=== PATIENT | female | born 1985 | race Caucasian/White ===

== ENCOUNTER 2016-11-12 19:47 | Emergency (ER) | payer SELFPAY ==
[~2016-11-12] VITALS: Ht 165.1 cm; Wt 58.5 kg
[~2016-11-12 19:47] MED LIST: CARB200T PO; PRED10TA14 PO
[2016-11-12] MEDS ORDERED: MORPHINE SULFATE 4 MG/ML, 1ML IVPush PRN (21:30)
[2016-11-12] MEDS ORDERED: SODIUM CHLORIDE FLUSH 10ML SYR IVF ONE (21:30)
[2016-11-12] MEDS ORDERED: ONDANSETRON 2MG/ML, 2ML IVPush ONE (21:30)
[2016-11-12 21:41] LABS: HEMOGLOBIN 14.8 g/dL (11.7-16.4)
[2016-11-12 21:44] LABS: ASPARTATE AMINO TRANSFERASE 13 U/L (15-37); BLOOD UREA NITROGEN 9 mg/dL (7-18)
[2016-11-12] MEDS ORDERED: MORPHINE SULFATE 4 MG/ML, 1ML ONE (21:58)
[2016-11-12] MEDS ORDERED: ONDANSETRON 2MG/ML, 2ML ONE (21:58)
[2016-11-12 23:29] VITALS: BP 93/75
== END 2016-11-12 23:35 | disposition home or self-care (01) ==
LOC: ED 22:29
DX: K29.00 Acute gastritis without bleeding (principal); K80.20 Calculus of gallbladder without cholecystitis without obstruction
CPT/HCPCS: 36415; 76700; 80053; 81003; 83690; 84703; 85025; 96374; 96375; 99285; J2405

== ENCOUNTER 2017-12-14 19:15 | Emergency (ER) | payer MEDICAID ==
[~2017-12-14] VITALS: Ht 165.1 cm; Wt 66.6 kg
[2017-12-14 19:36] VITALS: BP 123/81
== END 2017-12-14 21:18 | disposition home or self-care (01) ==
LOC: ED 21:12
DX: M54.12 Radiculopathy, cervical region (principal); M41.9 Scoliosis, unspecified
CPT/HCPCS: 72050; 99284

== ENCOUNTER 2018-02-10 17:14 | Emergency (ER) | payer MEDICAID ==
[~2018-02-10] VITALS: Ht 162.6 cm; Wt 63.2 kg
[2018-02-10] MEDS ORDERED: KETOROLAC 30 MG/1 ML IVPush ONE (18:30)
[2018-02-10] MEDS ORDERED: SODIUM CHLORIDE FLUSH 10ML SYR IVF ONE ×2 (18:30→20:00)
[2018-02-10] MEDS ORDERED: ONDANSETRON 2MG/ML, 2ML IVPush ONE (18:30)
[2018-02-10] MEDS ORDERED: MORPHINE SULFATE 4 MG/ML, 1ML IVPush PRN (18:30)
[2018-02-10] MEDS ORDERED: ONDANSETRON 2MG/ML, 2ML ONE (18:47)
[2018-02-10] MEDS ORDERED: MORPHINE SULFATE 4 MG/ML, 1ML ONE (18:47)
[2018-02-10] MEDS ORDERED: KETOROLAC 30 MG/1 ML ONE (18:47)
[2018-02-10 19:03] LABS: BASOPHILS # (AUTO) 0.03 x10^3/uL (0-0.1); BASOPHILS % (AUTO) 0 % (0-1); EOSINOPHILS # (AUTO) 0.11 x10^3/uL (0-0.4); EOSINOPHILS % (AUTO) 1 % (1-7); LYMPHOCYTES # (AUTO) 1.79 x10^3/uL (1-3.4); LYMPHOCYTES % (AUTO) 14 % (22-44); MD NO; MEAN CORPUSCULAR HEMOGLOBIN 33.1 pg (27.0-34.8); MEAN CORPUSCULAR HGB CONC 34.4 g/dL (32.4-35.8); MEAN CORPUSCULAR VOLUME 96.3 fL (80-100); MEAN PLATELET VOLUME 8.5 fL (7.4-10.4); MONOCYTES # (AUTO) 0.89 x10^3/uL (0.2-0.8); MONOCYTES % (AUTO) 7 % (2-9); NEUTROPHILS # (AUTO) 10.11 x10^3/uL (1.8-6.8); NEUTROPHILS % (AUTO) 78 % (42-75); PLATELET COUNT 220 x10^3/uL (130-400); RED CELL DISTRIBUTION WIDTH 13.5 % (9.6-15.2)
[2018-02-10 19:15] LABS: ALBUMIN 3.8 g/dL (3.4-5.0); ANION GAP 8 mmol/L (5-15); CALCIUM 8.6 mg/dL (8.5-10.1); CHLORIDE 109 mmol/L (98-107)
[2018-02-10 19:16] LABS: CREATININE 0.73 mg/dL (0.55-1.02)
[2018-02-10 19:52] LABS: MICROSCOPIC INDICATED
[2018-02-10 19:57] LABS: CULTURE INDICATED? YES
[2018-02-10] MEDS ORDERED: DIPHENHYDRAMINE 50 MG/ML, 1ML IVPush ONE (20:00)
[2018-02-10] MEDS ORDERED: SODIUM CHLORIDE 0.9% 1,000ML IVBOLUS ONE (20:00)
[2018-02-10] MEDS ORDERED: METOCLOPRAMIDE 5 MG/ML, 2ML IVPush ONE (20:00)
[2018-02-10] MEDS ORDERED: CEFTRIAXONE PMX 1GM/50ML 50 ML ONE (20:26)
[2018-02-10] MEDS ORDERED: CEFTRIAXONE PMX 1GM/50ML 50 ML IV ONE (20:30)
[2018-02-10 21:03] VITALS: BP 106/59
== END 2018-02-11 08:51 | disposition home or self-care (01) ==
LOC: ED 17:50
DX: N10 Acute pyelonephritis (principal); G40.909 Epilepsy, unspecified, not intractable, without status epilepticus
CPT/HCPCS: 36415; 74176; 80048; 81001; 82040; 85025; 87077; 87086; 87186; 96365; 96375; 99285; J0696; J1885; J2405

== ENCOUNTER 2018-06-12 13:14 | Emergency (ER) | payer MEDICAID ==
[~2018-06-12] VITALS: Ht 162.6 cm; Wt 63.0 kg
[2018-06-12 13:54] LABS: BASOPHILS # (AUTO) 0.07 x10^3/uL (0-0.1); BASOPHILS % (AUTO) 1 % (0-1); EOSINOPHILS # (AUTO) 0.09 x10^3/uL (0-0.4); EOSINOPHILS % (AUTO) 1 % (1-7); LYMPHOCYTES # (AUTO) 1.65 x10^3/uL (1-3.4); LYMPHOCYTES % (AUTO) 25 % (22-44); MD NO; MEAN CORPUSCULAR HEMOGLOBIN 32.8 pg (27.0-34.8); MEAN CORPUSCULAR HGB CONC 34.4 g/dL (32.4-35.8); MEAN CORPUSCULAR VOLUME 95.5 fL (80-100); MEAN PLATELET VOLUME 8.1 fL (7.4-10.4); MONOCYTES # (AUTO) 0.52 x10^3/uL (0.2-0.8); MONOCYTES % (AUTO) 8 % (2-9); NEUTROPHILS # (AUTO) 4.21 x10^3/uL (1.8-6.8); NEUTROPHILS % (AUTO) 64 % (42-75); PLATELET COUNT 225 x10^3/uL (130-400); RED BLOOD COUNT 4.49 x10^6/uL (3.82-5.3); RED CELL DISTRIBUTION WIDTH 13.2 % (9.6-15.2)
[2018-06-12] MEDS ORDERED: KETOROLAC 60 MG/2 ML IM ONE (14:00)
[2018-06-12] MEDS ORDERED: KETOROLAC 30 MG/1 ML ONE (14:06)
[2018-06-12 15:01] LABS: MICROSCOPIC INDICATED
[2018-06-12 15:24] VITALS: BP 106/57
[2018-06-12 15:24] LABS: CULTURE INDICATED? NO
== END 2018-06-12 15:26 | disposition home or self-care (01) ==
LOC: ED 13:59
DX: J06.9 Acute upper respiratory infection, unspecified (principal); G40.909 Epilepsy, unspecified, not intractable, without status epilepticus; Z90.49 Acquired absence of other specified parts of digestive tract; F17.200 Nicotine dependence, unspecified, uncomplicated
CPT/HCPCS: 36415; 71045; 81001; 85025; 96372; 99285; J1885

== ENCOUNTER 2020-02-17 14:44 | Emergency (ER) | payer SELFPAY ==
[~2020-02-17] VITALS: Ht 162.6 cm; Wt 63.3 kg
[2020-02-17 14:58] VITALS: BP 100/60
--- NOTE | 2020-02-17 15:20 | NUR ---
TASK RN: PT AMBULATORY TO ROOM FROM TRIAGE WITH STEADY GAIT. PT REPORTS CONSTANT ABD PAIN "CRAMPING"/N/V X LAST NIGHT WITH MULTIPLE EPISODES OF EMESIS. DENIES DYSURIA, BLOOD IN EMESIS OR STOOL, FEVER, CHILLS, OR CHEST PAIN. HX OF JACQUELINE. DENIES EXCESSIVE NSAID USE. UA COLLECTED AND SENT TO LAB.
[2020-02-17 15:24] LABS: MICROSCOPIC NOT IND
[2020-02-17] MEDS ORDERED: KETOROLAC 30 MG/1 ML IM ONE (15:30)
[2020-02-17] MEDS ORDERED: ONDANSETRON ODT 4 MG PO ONE (15:30)
[2020-02-17] MEDS ORDERED: KETOROLAC 30 MG/1 ML ONE (15:44)
[2020-02-17] MEDS ORDERED: ONDANSETRON ODT 4 MG ONE (15:44)
[2020-02-17 15:51] LABS: HCG UR SG 1.008 (1.003-1.030)
[2020-02-17 15:57] LABS: BASOPHILS # (AUTO) 0.03 x10^3/uL (0-0.1); BASOPHILS % (AUTO) 0 % (0-1); EOSINOPHILS # (AUTO) 0.06 x10^3/uL (0-0.4); EOSINOPHILS % (AUTO) 1 % (1-7); LYMPHOCYTES # (AUTO) 2.16 x10^3/uL (1-3.4); LYMPHOCYTES % (AUTO) 26 % (22-44); MD NO; MEAN CORPUSCULAR HEMOGLOBIN 32.5 pg (27.0-34.8); MEAN CORPUSCULAR HGB CONC 32.9 g/dL (32.4-35.8); MEAN CORPUSCULAR VOLUME 98.6 fL (80-100); MEAN PLATELET VOLUME 7.9 fL (7.4-10.4); MONOCYTES # (AUTO) 0.48 x10^3/uL (0.2-0.8); MONOCYTES % (AUTO) 6 % (2-9); NEUTROPHILS # (AUTO) 5.72 x10^3/uL (1.8-6.8); NEUTROPHILS % (AUTO) 68 % (42-75); PLATELET COUNT 292 x10^3/uL (130-400); RED BLOOD COUNT 4.78 x10^6/uL (3.82-5.3); RED CELL DISTRIBUTION WIDTH 13.7 % (9.6-15.2)
[2020-02-17 16:06] LABS: ANION GAP 4 mmol/L (5-15); CALCIUM 8.5 mg/dL (8.5-10.1); CHLORIDE 109 mmol/L (98-107); CREATININE 0.72 mg/dL (0.55-1.02)
[2020-02-17 16:39] LABS: ALANINE AMINOTRANSFERASE 21 U/L (12-78); ALBUMIN 3.7 g/dL (3.4-5.0); ALKALINE PHOSPHATASE 45 U/L (45-117); BILIRUBIN,TOTAL 0.3 mg/dL (0.2-1.0); TOTAL PROTEIN 7.2 g/dL (6.4-8.2)
[2020-02-17 16:40] LABS: BILIRUBIN, DIRECT < 0.1 mg/dL (0.1-0.2); BILIRUBIN,INDIRECT 0.2 mg/dL (0.0-2.0)
[2020-02-17] MEDS ORDERED: MAALOX/HYOSCYAMINE/LIDOCAINE 45 ML BTL ONE (16:47)
[2020-02-17] MEDS ORDERED: MAALOX/HYOSCYAMINE/LIDOCAINE 45 ML BTL PO ONE (17:00)
== END 2020-02-17 17:31 | disposition home or self-care (01) ==
LOC: ED 16:41
DX: K29.00 Acute gastritis without bleeding (principal); F17.210 Nicotine dependence, cigarettes, uncomplicated; G40.909 Epilepsy, unspecified, not intractable, without status epilepticus; F17.200 Nicotine dependence, unspecified, uncomplicated; Z90.49 Acquired absence of other specified parts of digestive tract
CPT/HCPCS: 36415; 80048; 80076; 81003; 81025; 83690; 85025; 96372; 99283; 99406; J1885; Q0162

== ENCOUNTER 2021-04-22 12:54 | Emergency (ER) | payer SELFPAY ==
[~2021-04-22] VITALS: Ht 160 cm; Wt 65.3 kg
--- NOTE | 2021-04-22 13:46 | NUR ---
conservation specialist: Pt ambulatory to room from lobby at this time.
--- NOTE | 2021-04-22 13:58 | NUR ---
PT C/O BACK PAIN THAT RADIATES TO HER CHEST. PT DENIES CP OR SOB. PT STATES SHE WAS JUST RELAXING WHEN THE PAIN STARTED. PAIN RADIATES TO BOTH SIDES OF HER RIB CAGE UP INTO HER JAW AND BACK OF HER NECK. PAIN 03/09. PT CONNECTED TO VS MONITORING EQUIPMENT. PT BELONGINGS AND CALL LIGHT WITHIN REACH. STANTON BEDSIDE WITH PT. AWAITING FURTHER ORDERS.
[2021-04-22] MEDS ORDERED: ASPIRIN 81 MG TABLET CHEW PO ONE (14:30)
[2021-04-22] MEDS ORDERED: SODIUM CHLORIDE FLUSH 10ML SYR IVF ONE (14:30)
[2021-04-22] MEDS ORDERED: MORPHINE SULFATE 4 MG/ML, 1ML IVPush PRN (14:30)
[2021-04-22] MEDS ORDERED: ONDANSETRON 2MG/ML, 2ML IVPush ONE (14:30)
[2021-04-22 14:34] LABS: BASOPHILS % (AUTO) 1 % (0-1); EOSINOPHILS % (AUTO) 2 % (1-7); LYMPHOCYTES % (AUTO) 41 % (22-44); MEAN CORPUSCULAR HEMOGLOBIN 32.9 pg (27.0-34.8); MEAN CORPUSCULAR HGB CONC 34.4 g/dL (32.4-35.8); MEAN PLATELET VOLUME 7.8 fL (7.4-10.4); MONOCYTES % (AUTO) 6 % (2-9); NEUTROPHILS % (AUTO) 51 % (42-75); PLATELET COUNT 249 x10^3/uL (130-400); RED BLOOD COUNT 4.36 x10^6/uL (3.82-5.3); RED CELL DISTRIBUTION WIDTH 13.6 % (9.6-15.2)
--- NOTE | 2021-04-22 14:41 | NUR ---
SHEREEN RN: MADHAVI ESTABLISHED. PT TO RADIOLOGY VIA DORA.
[2021-04-22] MEDS ORDERED: ONDANSETRON 2MG/ML, 2ML ONE (14:43)
[2021-04-22] MEDS ORDERED: MORPHINE SULFATE 4 MG/ML, 1ML ONE (14:43)
[2021-04-22] MEDS ORDERED: ASPIRIN 81 MG TABLET CHEW ONE (14:44)
--- NOTE | 2021-04-22 14:45 | NUR ---
PT RETURN TO ROOM, RETURNED TO MONITORING EQUIPMENT. SB-SR PER MONITOR. PT MEDICATED ORDERED FOR 8-9/10 PAIN ORDERED.
[2021-04-22 14:47] LABS: ANION GAP 5 mmol/L (5-15); CALCIUM 8.1 mg/dL (8.5-10.1); CHLORIDE 110 mmol/L (98-107); CREATININE 0.62 mg/dL (0.55-1.02)
[2021-04-22 14:48] LABS: ALANINE AMINOTRANSFERASE 23 U/L (12-78); ALBUMIN 3.3 g/dL (3.4-5.0)
[2021-04-22 14:52] LABS: ALKALINE PHOSPHATASE 48 U/L (45-117); BILIRUBIN,TOTAL 0.2 mg/dL (0.2-1.0); TOTAL PROTEIN 6.6 g/dL (6.4-8.2); TROPONIN I < 0.015 ng/mL (0.000-0.045)
--- NOTE | 2021-04-22 15:09 | NUR ---
REPORT TO CHERI DENNIS.
--- NOTE | 2021-04-22 15:10 | NUR ---
PAIN DECREASED SOME TO 6-7/10 "IT JUST SHOOTS"
[2021-04-22] MEDS ORDERED: KETOROLAC 30 MG/1 ML ONE (16:24)
[2021-04-22] MEDS ORDERED: KETOROLAC 15 MG/1ML IVPush ONE (16:30)
[2021-04-22 17:44] VITALS: BP 98/61
--- NOTE | 2021-04-22 17:50 | NUR ---
ASSIST RN: D/C INSTRUCTIONS, MEDS & F/U APPT RV'WD WITH PT, SHE VERBALIZES UNDERSTANDING. RX GIVEN X2. INSTRUCTED PT TO RETURN TO ED OR F/U WITH PCP IF SYMTPOMS NOT IMPROVING. AMBULATED OUT OF ED WITH MOTHER WITHOUT DIFFICULTY.
== END 2021-04-22 18:26 | disposition home or self-care (01) ==
LOC: ED 18:16
DX: S39.012A Strain of muscle, fascia and tendon of lower back, initial encounter (principal); M54.6 Pain in thoracic spine; G40.909 Epilepsy, unspecified, not intractable, without status epilepticus; R00.0 Tachycardia, unspecified; F17.210 Nicotine dependence, cigarettes, uncomplicated; Z90.49 Acquired absence of other specified parts of digestive tract; Z88.5 Allergy status to narcotic agent; X58.XXXA Exposure to other specified factors, initial encounter; Y93.89 Activity, other specified; Y92.89 Other specified places as the place of occurrence of the external cause; Y99.8 Other external cause status
CPT/HCPCS: 36415; 71046; 80053; 83690; 84484; 85025; 85379; 93005; 96374; 96375; 99285; J1885; J2270; J2405